=== PATIENT | female | born 1990 | race Hispanic/Latino ===

== ENCOUNTER 2018-02-17 06:29 | Emergency (ER) | payer OTHER ==
[2018-02-17 06:29] VITALS: BMI 24.5
--- NOTE | 2018-02-17 07:17 | ED PDOC ---
HPI: Dental Pain/Injury Time Seen by Provider: 02/17/18 07:09 Chief Complaint (Nursing): Dental Pain History Per: Patient History/Exam Limitations: no limitations Onset/Duration Of Symptoms: Days (x 2) Current Symptoms Are (Timing): Still Present Additional Complaint(s): 27-year-old presents to the ED with right lower toothache posterior x 2 days. Has an appointment with dentist later this week. No fever. Patient brought her own dental x-ray that shows impacted molars to all 4. PMD: No Family Provider Past Medical History Reviewed: Historical Data, Nursing Documentation, Vital Signs Vital Signs: Last Vital Signs Temp 98.4 F 02/17/18 06:42 Pulse 106 H 02/17/18 06:42 Resp 16 02/17/18 06:42 BP 126/83 02/17/18 06:42 Pulse Ox 100 02/17/18 06:42 - Medical History PMH: Depression Denies: Diabetes, Hepatitis, HIV, HTN, Seizures, Sexually Transmitted Disease - Surgical History Surgical History: No Surg Hx - Family History Family History: States: Unknown Family Hx - Immunization History Hx Tetanus Toxoid Vaccination: (UNK) Hx Influenza Vaccination: (UNK) Hx Pneumococcal Vaccination: (UNK) - Home Medications Home Medications: Ambulatory Orders Medication Instructions Recorded Cephalexin [cephalexin] 500 mg PO BID #20 cap 01/24/16 Penicillin VK [Penicillin VK Tab] 250 mg PO Q6H #28 tab 02/17/18 traMADol [Ultram] 50 mg PO Q8 #10 tab 02/17/18 - Allergies Allergies/Adverse Reactions: Allergies Allergy/AdvReac Type Severity Reaction Status Date / Time No Known Allergies Allergy Verified 01/23/16 22:24 Review of Systems ROS Statement: Except As Marked, All Systems Reviewed And Found Negative Constitutional: Negative for: Fever ENT: Positive for: Other (Tooth pain) Physical Exam - Reviewed Nursing Documentation Reviewed: Yes Vital Signs Reviewed: Yes - Physical Exam ENT: Positive for: Other (Right lower molar swelling. No abscess, no fluctuants. ) - ECG O2 Sat by Pulse Oximetry: 100 (RA) Pulse Ox Interpretation: Normal Medical Decision Making Medical Decision Making: Upon provider evaluation patient is medically stable, and requires no further treatment in the ED at this time. Patient will be discharged with Rx for Penicillin VK Tab and traMADol. Counseling was provided and all questions were answered regarding diagnosis and need for follow up with dentist. There is agreement to discharge plan. Return if symptoms persist or worsen. Scribe Attestation: Documented by Sandro Napier, acting as a scribe for Justice Contreras MD Provider Scribe Attestation: All medical record entries made by the Scribe were at my direction and personally dictated by me. I have reviewed the chart and agree that the record accurately reflects my personal performance of the history, physical exam, medical decision making, and the department course for this patient. I have also personally directed, reviewed, and agree with the discharge instructions and disposition. Disposition - Clinical Impression Clinical Impression: Impacted molar - Patient ED Disposition Is Patient to be Admitted: No - Disposition Disposition: Routine/Home Disposition Time: 07:16 Condition: STABLE Prescriptions: Penicillin VK [Penicillin VK Tab] 250 mg PO Q6H #28 tab traMADol [Ultram] 50 mg PO Q8 #10 tab Instructions: Impacted Tooth (DC) Forms: [employer] (Czech)
[2018-02-17 07:44] VITALS: BP 128/78; PULSE 78; RESP 19; TEMP 97; O2SAT 98
== END 2018-02-17 07:44 | disposition home or self-care (01) ==
LOC: H.ER 06:29
DX: K01.1 Impacted teeth (principal); F32.9 Major depressive disorder, single episode, unspecified